=== PATIENT | male | born 1970 | race Caucasian/White ===

== ENCOUNTER 2022-02-18 04:46 | Day surgery (SDC) | payer OTHER ==
[2022-02-17 07:52] VITALS: BMI 34.9
[2022-02-18 10:50] VITALS: TEMP 97
[2022-02-18 11:18] VITALS: PULSE 50
[2022-02-18 11:24] VITALS: BP 104/61; RESP 18
== END 2022-02-18 11:35 | disposition home or self-care (01) ==
LOC: JASU-ENDO 04:46
PROVIDERS: ATTEND Internal Medicine Gastroenterology
PROC: 0DBL8ZX Excision of Transverse Colon, Via Natural or Artificial Opening Endoscopic, Diagnostic (ICD-10-PCS; principal; 2022-02-18 10:00)
DX: Z12.11 Encounter for screening for malignant neoplasm of colon (principal); D12.3 Benign neoplasm of transverse colon; K57.30 Diverticulosis of large intestine without perforation or abscess without bleeding
CPT/HCPCS: 88305-TC